=== PATIENT | female | born 1950 | race African-American/Black ===

== ENCOUNTER 2017-05-09 17:42 | Inpatient (IN) | payer MEDICARE ==
--- NOTE | ~2017-05-09 | DS ---
Discharge Summary [facility] [address] [place]. [address] NAME: ESME MANUEL : 48 STATUS : DIS IN PAT#: [id number] AGE: 66 ADM/REG DATE : 05/10/17 MR#: [id number] REPORT SERV DATE: 05/28/17 DICTATED BY: ARLENE OTOOLE DATE: 05/26/17 REPORT STATUS : Draft TRANSCRIBED BY: ARI DATE: 05/26/17 Data Collection from hospitalization DISCHARGE DIAGNOSIS(ES): 1. Acute renal failure. 2. Hyperkalemia. 3. Hyponatremia. 4. Urinary retention. 5. Morbid obesity. 6. Diabetes mellitus. 7. Sleep apnea - untreated. 8. Hypertension. 9. Hypothyroidism. 10.Schizoaffective disorder. 11.Anemia of chronic kidney disease. 12.Osteoarthritis. 13.History of old lacunar CVA. 14.Depression. 15.Hyperlipidemia. 16.Diastolic dysfunction. 17.Venous stasis disease. CONSULTATIONS: Dr. Nick Rene and Dr. Declan Tejeda. PROCEDURES PERFORMED: 1. CT scan of the abdomen and pelvis without contrast, 05/09/2017. 2. CT scan of the left lower extremity without contrast, 05/10/2017. MEDICATIONS: Abilify 10 mg at bedtime, aspirin 81 mg daily, Lipitor 40 mg at bedtime, Wellbutrin SR 150 mg twice a day, Iodosorb gel, apply to the right leg wound topically daily as instructed, Coreg 3.125 mg twice a day, Caltrate plus D 600 mg twice a day, Voltaren 2 g topically twice a day, Colace 100 mg twice a day, Flonase nasal spray two sprays in each nostril daily, Lasix 80 mg daily, Neurontin 100 mg twice a day, [place] 5/325 one tablet three times a day, NovoLog injection insulin as instructed, Synthroid 50 mcg before breakfast, Singulair 10 mg daily, MiraLAX powder one packet twice a day, Senokot two tablets twice a day, Apresoline 75 mg twice a day, Artificial Tears one drop four times a day as needed, dextrose 50 mL IV as needed, Glucophage 250 mg daily, glucose tablets three tablets as needed, vitamin D 50,000 units every 30 days as instructed, Artificial Tears one drop four times a day as needed, and Protonix 40 mg daily as instructed. CONDITION AT DISCHARGE: Stable. DISPOSITION: The patient was discharged to [facility] at [facility] on a regular diet with 1500 mL fluid restriction and activities as instructed. HOSPITAL COURSE: This is a 66-year-old female who was seen on the day prior to this admission after the assisted living facility nurse called to report that the patient had a fall and was complaining of feeling weak. The patient was taken to the [facility] Discharge Summary [address] [address] NAME: ESME MANUEL : 48 STATUS : DIS IN PAT#: [id number] AGE: 66 ADM/REG DATE : 05/10/17 MR#: [id number] REPORT SERV DATE: 05/28/17 DICTATED BY: ARLENE OTOOLE DATE: 05/26/17 REPORT STATUS : Draft TRANSCRIBED BY: ARI DATE: 05/26/17 at that time but was discharged without any medications. She reports that she had fallen onto her rolling walker and thought that she may have stayed on the floor for a prolonged period of time. She denies having hit her head and did not complain of any chest pain, shortness of breath, fever, nausea, vomiting, diarrhea, or dysuria. In the clinic, BUN and creatinine were elevated at 34 and 2.6. Her last BUN and creatinine in 01/2017 was 23 and 1.48. She had been voiding. She was felt to have acute on chronic renal failure. That evening, it was reported that she was not able to void. A bladder scan revealed 700 mL of urine. A Hollis catheter was placed. BUN and creatinine improved to 29 and 1.53 after receiving IV fluids overnight. She was admitted to the hospital at this time for further evaluation and treatment. Upon admission, x-rays of the knees were performed. She does have extensive degenerative joint disease with possible left knee fracture. The patient was seen by Dr. Nick Rene regarding acute kidney injury and hyponatremia. She had received IV fluids overnight. She denies any nonsteroidal antiinflammatory drug use. His impression included acute on chronic kidney disease, possibly prerenal with urinary retention. Creatinine had decreased from 2.58 to 1.53. She has a history of chronic hyponatremia. Her sodium level improved from 126 to 132 with saline. She agreed with normal saline. VESIcare was going to be discontinued. Abilify was continued for her schizoaffective disorder. Sliding scale insulin was being continued with fair blood sugar control. She is a DNR code status with limited additional interventions. A CT scan of the abdomen and pelvis without contrast had been performed. There was no acute abdominal or pelvic pathology. A CT scan of the left knee was obtained. On the , sodium and creatinine levels had improved. She had 1+ edema. VESIcare had been stopped. She was going to be placed on fluid restriction for now. The Hollis catheter was removed. She was voiding. Her T-max was 100. BUN and creatinine had improved and were back to baseline. IV fluids had been stopped. On the , she was seen by Dr. Declan Tejeda. This patient is morbidly obese. She is a long-term resident of an assisted living facility. There was a question of decrease in her short-term memory. She does use a walker and is a limited community walker. She complained of having clicking in moderate pain and weakness in her lower extremities. She was felt to have genu varus osteoarthritis of the knees. She is not a candidate for total knee arthroplasty at this time. She was encouraged to attempt weight loss. It was felt that she would need to undergo more motility and balance training. Her T-max was 99.3. White blood cell count was normal. Sliding scale insulin was continued. She remained on fluid restriction. On 05/13/2017, she had no new complaints. She had fair control of her blood sugars, acute on chronic renal failure had resolved. Discharge planning was performed. On 01/15/2017, she had no acute complaints. Her lungs were clear. She was alert. Discharge instructions were given. Due to her improved and stable condition, she was discharged to [facility] at [facility] with the above-stated instructions. Information collected by: Franchesca Gaines I submit the above information as my discharge summary. TG/MODL Discharge Summary [facility] [address] [place]. [address] NAME: ESME MANUEL : 48 STATUS : DIS IN PAT#: [id number] AGE: 66 ADM/REG DATE : 05/10/17 MR#: [id number] REPORT SERV DATE: 05/28/17 DICTATED BY: ARLENE OTOOLE DATE: 05/26/17 REPORT STATUS : Draft TRANSCRIBED BY: ARI DATE: 05/26/17 Arlene Otoole M.D. / [id number] CC: Kesha Perrin M.D. Neil Spitalny, M.D. [facility]
--- NOTE | ~2017-05-09 | CN ---
Consultation Report [facility] [address] [place]. [address] NAME: ESME MANUEL : 48 STATUS : ADM Jayce PAT#: [id number] AGE: 66 ADM/REG DATE : 05/09/17 MR#: [id number] REPORT SERV DATE: 05/10/17 DICTATED BY: TORSTEN MALDONADO DATE: 05/10/17 REPORT STATUS : Draft TRANSCRIBED BY: MODL DATE: 05/10/17 NEPHROLOGY CONSULTATION DATE OF CONSULTATION: 05/10/2017 INDICATION FOR CONSULTATION: Acute kidney injury, hyponatremia. HISTORY OF PRESENT ILLNESS: Ms. Manuel is a 66-year-old female, who was admitted after note of acute kidney injury with rise of her creatinine to approximately 2.6. She had been found after a fall by her daughter. She apparently lives alone at home and ambulates with a walker. She was unsure of how long she was remaining on the floor before she was found. Initial labs available reflect a creatinine of 2.53, which has fallen to 1.58; a serum sodium of 126, which has risen to 132; and a potassium of 6.0, which has fallen to 4.4. She has been on spironolactone, potassium, Lasix, metformin, Abilify, Wellbutrin. She denies nonsteroidal antiinflammatory drug use. Upon Hollis placement after hospitalization, she initially voided approximately 700 mL. She denies any note of dark-colored urine or gross hematuria. She has no symptoms to suggest underlying collagen vascular disease. PAST MEDICAL HISTORY: CKD stage 3, baseline creatinine questionably 1.5; chronic hyponatremia; schizoaffective disorder; type 2 diabetes mellitus; hypertension; hypothyroidism; anemia of chronic kidney disease, followed by Hematology; osteoarthritis; venous stasis disease of lower extremities with occasional lower extremity ulcer; depression; old lacunar CVA; obstructive sleep apnea; diastolic dysfunction; and hyperlipidemia. SOCIAL HISTORY: The patient lives alone. 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 No use of alcohol, tobacco products, or illicit drugs. She has two adult daughters, who check on her frequently. ALLERGIES: NONE KNOWN. HOME MEDICATIONS: Acetaminophen, Abilify, aspirin, Lipitor, Wellbutrin, Caltrate, Coreg, Voltaren gel topical, Colace, vitamin D3, Flonase nasal spray, Lasix, Neurontin, Apresoline, levothyroxine, metformin, Singulair, omeprazole, MiraLax, potassium chloride, Senokot, VESIcare, Aldactone, tramadol, RectiCare cream. FAMILY HISTORY: Positive for hypertension. Unsure about cardiac disease. No history of end stage renal disease or cancer. REVIEW OF SYSTEMS: HEENT: No change in visual acuity. No epistaxis. No otic infection. No pharyngitis. PULMONARY: Denies shortness of breath, cough, or hemoptysis. CARDIAC: Has some intermittent chest pain and lower extremity edema. GI: No nausea, vomiting, or diarrhea. Does have intermittent constipation. Consultation Report [place] [id number] [place]. [address] NAME: ESME MANUEL : 48 STATUS : ADM Jayce PAT#: [id number] AGE: 66 ADM/REG DATE : 05/09/17 MR#: [id number] REPORT SERV DATE: 05/10/17 DICTATED BY: TORSTEN MALDONADO DATE: 05/10/17 REPORT STATUS : Draft TRANSCRIBED BY: ARI DATE: 05/10/17 : History of urinary frequency. No gross hematuria, dysuria, or pyuria. MUSCULOSKELETAL: Pain in back and knees. INTEGUMENT: No rash. No itching. Does have some occasional lower extremity ulcers from venous stasis disease. NEUROLOGIC: No lateralizing weakness or seizure activity. The remainder of 12-point review of systems is negative. PHYSICAL EXAMINATION: VITAL SIGNS: Temp 96.9, blood pressure 131/60, respiratory rate 17, pulse 82. GENERAL: Pleasant female, alert and cooperative. HEENT: Eyes, no scleral icterus. Pupils equal and reactive to light. Extraocular movement intact. Nares patent, no discharge. Throat, no injection. Mucous membranes moist. NECK: No thyromegaly, masses, or bruits. CHEST/LUNGS: Few late crackles posteriorly at bases. No dullness. No wheezing. CARDIAC: Regular rate and rhythm. No murmur, gallop, or rub. ABDOMEN: Supple. Normoactive bowel sounds. Nontender. No hepatosplenomegaly. No bruits. BREASTS: Not performed. PELVIC: Not performed. RECTAL: Not performed. EXTREMITIES: 1+ edema. No calf tenderness. DERMIS: No rash. No skin lesions. NEUROLOGIC: Cranial nerves intact. No lateralizing weakness. MUSCULOSKELETAL: No deformity. No joint effusions. IMPRESSION: 1. Acute on chronic kidney disease, possibly prerenal with urinary retention, creatinine falling from 2.58 to 1.53. 2. Hyponatremia with history of chronic hyponatremia, sodium improved from 126 to 132 with saline. 3. Schizoaffective disorder. 4. Type 2 diabetes mellitus. 5. Hypertension. 6. Hypothyroidism. 7. Anemia of chronic kidney disease. 8. Lower extremity venous stasis disease. PLAN: 1. Concur with normal saline. 2. We will discontinue VESIcare. 3. Lab. CG/MODL Consultation Report [place] [id number] [place]. [address] NAME: ESME MANUEL : 48 STATUS : ADM Jayce PAT#: [id number] AGE: 66 ADM/REG DATE : 05/09/17 MR#: [id number] REPORT SERV DATE: 05/10/17 DICTATED BY: TORSTEN MALDONADO DATE: 05/10/17 REPORT STATUS : Draft TRANSCRIBED BY: MODL DATE: 05/10/17 Torsten Maldonado M.D. / [id number] CC: Kesha Coello M.D.
--- NOTE | ~2017-05-09 | HP ---
History And Physical [place] [id number] [facility] [place]. [address] NAME: ESME MANUEL : [birth year] STATUS : ADM IN [facility]#: [id number] AGE: 66 ADM/REG DATE : 05/10/17 MR#: [id number] REPORT SERV DATE: 05/15/17 DICTATED BY: ARLENE OTOOLE DATE: 05/14/17 REPORT STATUS : Draft TRANSCRIBED BY: MODL DATE: 05/14/17 DATE OF ADMISSION: 05/10/2017 CHIEF COMPLAINT: Elevated BUN and creatinine. HISTORY OF PRESENT ILLNESS: The patient was seen in the clinic on 05/09/2017 after the assisted living facility nurse had called to report that the patient had had a fall yesterday and was complaining of feeling weak. The patient was taken to the [facility] at the time, but was discharged without any medications. She reports that she had fallen onto her rolling walker and thinks that she may have stayed on the floor for a prolonged period of time. She denies having hit her head and does not complain of any chest pain, shortness of breath, fever, nausea, vomiting, diarrhea, or dysuria. In the clinic, labs were done, and BUN and creatinine were found to be elevated at 34 and 2.6. Her last BUN and creatinine on 02/08/2017 was 23/1.48. She has joya voiding. She was subsequently admitted to the hospital for further evaluation of acute on chronic renal failure. The nurse also called last night and had reported that the patient was not able to void, and the BladderScan had revealed 700 mL of urine. Subsequently, a Hollis catheter was put in. Her BUN and creatinine are improved today down to 29 and 1.53 after receiving IV fluids overnight. An x-ray of the knees was also performed in view of knee pain and bilateral knees showed extensive degenerative joint disease with possible left knee fracture, but the radiologist recommending a CT scan. The patient has been seen by Ren[facility], and they have recommended continuing IV fluids as the renal function is improving at this time. They also recommended stopping her VESIcare. REVIEW OF SYSTEMS: No complaints of changes in vision or hearing loss. No complaints of shortness of breath, chest pain, nausea, or vomiting. No complaints of abdominal pain or burning micturition. FAMILY HISTORY: Currently noncontributory. SOCIAL HISTORY: She lives currently at an assisted living facility and has been having occasional falls as per her [id number], who is currently in the hospital room. ALLERGIES: NORVASC, MARTÍN INHIBITOR, LACTOSE INTOLERANCE. MEDICATIONS: Abilify 10 mg at bedtime, aspirin 81 mg daily, atorvastatin 40 mg at bedtime, CalCarb, Colace, Coreg 3.125 mg twice a day, furosemide 40 mg two tablets once daily, gabapentin 100 mg one tablet twice a day, Glucophage 500 mg [id number] daily, hydralazine 50 mg [id number]-[id number]-half tablets twice a day, potassium chloride, levothyroxine 50 mcg one tablet daily, Prilosec 20 mg one capsule twice a day, RectiCare cream p.r.n., senna two tablets twice a day, Singulair 10 mg one tablet daily, spironolactone 50 mg twice a day, tramadol 50 mg one tablet three times daily, Tylenol 500 mg two tablets three times daily, VESIcare 10 mg at bedtime, vitamin D3 50,000 units one capsule monthly, Voltaren Gel 2 g twice daily, Wellbutrin 150 mg one tablet twice a day. History And Physical [address] [address] NAME: ESME MANUEL : [birth year] STATUS : ADM IN [facility]#: [id number] AGE: 66 ADM/REG DATE : 05/10/17 MR#: [id number] REPORT SERV DATE: 05/15/17 DICTATED BY: ARLENE OTOOLE DATE: 05/14/17 REPORT STATUS : Draft TRANSCRIBED BY: ARI DATE: 05/14/17 PHYSICAL EXAMINATION: VITAL SIGNS: Temperature 96.9, pulse 80, respirations 17, blood pressure 158/54, oxygen saturations 95% on room air. GENERAL: Middle-aged lady, morbidly obese, lying in bed, in no acute distress. HEENT: Pupils are reactive. No conjunctival injection. No scleral icterus noted. NECK: Obese. CHEST: Clear to auscultation bilaterally. CARDIOVASCULAR: Regular rate and rhythm. No murmurs heard. ABDOMEN: Soft, nontender, nondistended. Obesity present. Bowel sounds are present. EXTREMITIES: Reveal 1+ edema bilaterally. Right lower extremity wound was present with a full-thickness wound. LABORATORY DATA: Sodium 132, potassium 4.4, chloride 102, BUN was 36 and creatinine 2.38 yesterday in the emergency room and it was down to 29 and 1.53 today, glucose 123, calcium 8.4. White count 12.3, hemoglobin 8.9, hematocrit 28.2, platelets 277. CPK was 6856. CT scan of the abdomen and pelvis revealed a 1 mm nonobstructing calculi in the mid lower pole, right kidney, moderate to severe degenerative joint disease L4-L5. Chest x-ray revealed normal heart and lungs. X-ray of bilateral knees revealed advanced degenerative joint disease in bilateral knees with mild depression of the medial tibial plateau with lucencies and possible bone fragment in the left knee with a small suprapatellar joint effusion. ASSESSMENT AND PLAN: 1. Acute on chronic renal failure. This has improved with IV fluids. Unclear cause. CPK not high enough to be responsible for rhabdo and renal damage as per the inspector and hand packager. 2. Hyponatremia likely secondary to current medications. It is somewhat improved. Will fluid restrict. 3. Schizoaffective disorder. Continue current medications Abilify. 4. Type 2 diabetes mellitus. She is currently on sliding scale insulin with fair blood- sugar control. 5. Hypothyroidism, on Synthroid. We will continue the same. 6. Anemia secondary to chronic kidney disease. This is present at baseline. 7. Hypertension. She has fair blood pressure control at this time. 8. Code status is DNR, limited additional interventions. ANGEL LUIS/ARI Arlene Otoole M.D. / [id number] CC: Arlene Otoole M.D.
[2017-05-09 16:17] LABS: BUN (BLOOD UREA NITROGEN) 36 MG/DL (6-23); CALCIUM, SERUM 9.3 MG/DL (8.5-10.4); CHLORIDE, SERUM 95 MMOL/L (96-112); CO2 (CARBON DIOXIDE) 23 MMOL/L (24-34); CREATININE 2.53 MG/DL (0.55-1.02); GFR AFRICAN AMERICAN 22 ML/MIN (>=60); GFR NON AFRICAN AMERICAN 19 ML/MIN (>=60); GLUCOSE, SERUM 64 MG/DL (60-99)
[2017-05-09 16:21] LABS: SODIUM, SERUM 127 MMOL/L (135-148)
[~2017-05-09 17:42] MED LIST: ABILIFY5 PO; ACET500CAP PO; APRES50 PO; ASAB PO; ATEN50 PO; CALTRAT600 PO; COREG3 PO; DEPAKOT500 PO; DEPAKOTEER PO; DSS PO; EFFEXOR XR150 MG PO; FORTAMET500 MG PO; GLUCPH PO; IRON325 MG PO; KLOR-CON M2020 MEQ PO; L20 PO; L40 PO; LEVOTHYROXIN25 MCG PO; LORTAB 5 PO; LOTREL1 CA2 PO; MULTIPLE VIT PO; MULTIVITAMI1 PO; NORV10 PO; OS500+D PO; PRAVACHOL80 MG PO; PRILO PO; SPIRO25 PO; SYN.025B PO; ZOCOR20 PO
[2017-05-09 18:04] LABS: BASOPHILS 0.1 %; BASOPHILS ABSOLUTE 0.01 10/3/uL (0.0-0.16); EOSINOPHILS 0.9 %; EOSINOPHILS ABSOLUTE 0.11 10/3/uL (0.0-0.53); HEMATOCRIT 28.2 % (36.0-48.0); HEMOGLOBIN 8.9 g/dL (12.0-16.0); IMMATURE GRANULOCYTES 0.6 %; IMMATURE GRANULOCYTES ABSOLUTE 0.07 10/3/uL (0.0-0.11); LYMPHOCYTES ABSOLUTE 1.36 10/3/uL (0.67-4.30); MEAN CORPUS HGB CONC 31.6 g/dL (32.0-36.0); MEAN CORPUSCULAR HEMOGLOB 25.4 pg (26.0-34.0); MEAN CORPUSCULAR VOLUME 80.6 fL (80-100); MEAN PLATELET VOLUME 8.8 fL (9.2-13.0); MONOCYTES 10.2 %; MONOCYTES ABSOLUTE 1.25 10/3/uL (0.21-1.20); NEUTROPHILS 77.2 %; NEUTROPHILS ABSOLUTE 9.51 10/3/uL (2.02-8.40); PLATELET COUNT 277 10/3/uL (150-400); RBC DISTRIBUTION WIDTH 15.8 % (12.0-16.0)
[2017-05-09 18:05] LABS: ER CBC TAT 0 Hrs 07 Mins; MANUAL DIFF NO %; WHITE BLOOD CELLS 12.3 10/3/uL (4.5-10.5)
[2017-05-09 18:12] LABS: ASCORBIC ACID (UR NOT ORDER) NEG (NEG); BILIRUBIN, URINE NEGATIVE (NEG); ER URINALYSIS TAT 0 Hrs 13 Mins; KETONE, URINE NEGATIVE (NEG); LEUKOCYTE ESTERASE(NOT OR NEG (NEG); NITRITE (URINE) NEG (NEG); WBC (NOT ORDERED) (RFLEX) < 1 (0-5)
[2017-05-09 18:30] LABS: BUN (BLOOD UREA NITROGEN) 36 MG/DL (6-23); CALCIUM, SERUM 9.5 MG/DL (8.5-10.4); CHLORIDE, SERUM 94 MMOL/L (96-112); CO2 (CARBON DIOXIDE) 24 MMOL/L (24-34); CREATININE 2.38 MG/DL (0.55-1.02); GFR AFRICAN AMERICAN 24 ML/MIN (>=60); GFR NON AFRICAN AMERICAN 20 ML/MIN (>=60); SODIUM, SERUM 126 MMOL/L (135-148)
[2017-05-09 18:31] LABS: GLUCOSE, SERUM 90 MG/DL (60-99); POTASSIUM, SERUM 4.7 MMOL/L (3.5-5.3)
[2017-05-09] MEDS ORDERED: DSS PO (22:36)
[2017-05-09] MEDS ORDERED: LEVOTHYROXIN50 MCG PO (22:36)
[2017-05-09] MEDS ORDERED: HALF81 PO (22:36)
[2017-05-09] MEDS ORDERED: KLOR-CON M2020 MEQ PO (22:37)
[2017-05-09] MEDS ORDERED: L80 PO (22:37)
[2017-05-09] MEDS ORDERED: GLUCPH PO (22:37)
[2017-05-09] MEDS ORDERED: WELLSR150 PO (22:37)
[2017-05-09] MEDS ORDERED: SPIRO50 PO (22:37)
[2017-05-09] MEDS ORDERED: ABILIFY10 PO (22:38)
[2017-05-09] MEDS ORDERED: CALTRA600D PO (22:38)
[2017-05-09] MEDS ORDERED: ACET500CAP PO (22:38)
[2017-05-09] MEDS ORDERED: SENTAB PO (22:39)
[2017-05-09] MEDS ORDERED: APRES25 PO (22:39)
[2017-05-09] MEDS ORDERED: VOLTAREN1 % TOP (22:40)
[2017-05-09] MEDS ORDERED: VESICARE10 MG PO (22:42)
[2017-05-09] MEDS ORDERED: SINGULAIR1 PO (22:42)
[2017-05-09] MEDS ORDERED: RECTICARE (22:42)
[2017-05-09] MEDS ORDERED: NEUR100 PO (22:43)
[2017-05-09] MEDS ORDERED: COREG3 PO (22:43)
[2017-05-09] MEDS ORDERED: PRILO PO (22:43)
[2017-05-09] MEDS ORDERED: LIPITOR40 PO (22:43)
[2017-05-09] MEDS ORDERED: MIRALAX POWDER1 PKT PO (22:45)
[2017-05-09] MEDS ORDERED: FLONASE NAS (22:45)
[2017-05-09] MEDS ORDERED: VITD PO (22:46)
[2017-05-09] MEDS ORDERED: TEARS PURE OPH (22:46)
[2017-05-09] MEDS ORDERED: ULTRAM50 PO (22:47)
[2017-05-10 03:34] LABS: CHLORIDE, SERUM 102 MMOL/L (96-112); CO2 (CARBON DIOXIDE) 22 MMOL/L (24-34); POTASSIUM, SERUM 4.4 MMOL/L (3.5-5.3); SODIUM, SERUM 132 MMOL/L (135-148)
[2017-05-10 03:36] LABS: BUN (BLOOD UREA NITROGEN) 29 MG/DL (6-23); CALCIUM, SERUM 8.4 MG/DL (8.5-10.4); CREATININE 1.53 MG/DL (0.55-1.02); GFR AFRICAN AMERICAN 40 ML/MIN (>=60); GFR NON AFRICAN AMERICAN 35 ML/MIN (>=60); GLUCOSE, SERUM 123 MG/DL (60-99)
[2017-05-10 11:53] LABS: FREE T4 1.23 NG/DL (0.76-1.46)
[2017-05-10 11:54] LABS: CPK 6856 U/L (0-200)
[2017-05-11 04:47] LABS: BASOPHILS 0.1 %; BASOPHILS ABSOLUTE 0.01 10/3/uL (0.0-0.16); EOSINOPHILS 1.6 %; EOSINOPHILS ABSOLUTE 0.12 10/3/uL (0.0-0.53); HEMOGLOBIN 7.5 g/dL (12.0-16.0); IMMATURE GRANULOCYTES 0.5 %; IMMATURE GRANULOCYTES ABSOLUTE 0.04 10/3/uL (0.0-0.11); LYMPHOCYTES 15.2 %; LYMPHOCYTES ABSOLUTE 1.13 10/3/uL (0.67-4.30); MEAN CORPUS HGB CONC 31.9 g/dL (32.0-36.0); MEAN CORPUSCULAR HEMOGLOB 25.5 pg (26.0-34.0); MEAN CORPUSCULAR VOLUME 79.9 fL (80-100); MEAN PLATELET VOLUME 8.8 fL (9.2-13.0); MONOCYTES ABSOLUTE 1.11 10/3/uL (0.21-1.20); NEUTROPHILS 67.6 %; PLATELET COUNT 227 10/3/uL (150-400); RBC DISTRIBUTION WIDTH 15.6 % (12.0-16.0); RED CELL COUNT 2.94 10/6/uL (4.0-5.6); WHITE BLOOD CELLS 7.4 10/3/uL (4.5-10.5)
[2017-05-11 04:49] LABS: HEMATOCRIT 23.5 % (36.0-48.0); MANUAL DIFF NO %
[2017-05-11 05:02] LABS: CALCIUM, SERUM 9.2 MG/DL (8.5-10.4); CHLORIDE, SERUM 100 MMOL/L (96-112); CO2 (CARBON DIOXIDE) 24 MMOL/L (24-34); GLUCOSE, SERUM 99 MG/DL (60-99); POTASSIUM, SERUM 4.6 MMOL/L (3.5-5.3); SODIUM, SERUM 131 MMOL/L (135-148)
[2017-05-11 05:03] LABS: ALBUMIN 2.6 G/DL (3.5-5.0); BUN (BLOOD UREA NITROGEN) 16 MG/DL (6-23); CREATININE 1.01 MG/DL (0.55-1.02); GFR AFRICAN AMERICAN 67 ML/MIN (>=60); GFR NON AFRICAN AMERICAN 58 ML/MIN (>=60)
[2017-05-11 05:07] LABS: T PROTEIN (ELECT)(NOT OR 6.3 G/DL (6.0-8.5)
[2017-05-11 09:38] LABS: CPK 3514 U/L (0-200)
[2017-05-11 21:27] LABS: ASCORBIC ACID (UR NOT ORDER) NEG (NEG); BILIRUBIN, URINE NEGATIVE (NEG); KETONE, URINE NEGATIVE (NEG); LEUKOCYTE ESTERASE(NOT OR NEG (NEG); WBC (NOT ORDERED) (RFLEX) 2 (0-5)
[2017-05-12 04:35] LABS: BASOPHILS 0.1 %; BASOPHILS ABSOLUTE 0.01 10/3/uL (0.0-0.16); EOSINOPHILS 1.8 %; EOSINOPHILS ABSOLUTE 0.15 10/3/uL (0.0-0.53); HEMATOCRIT 25.6 % (36.0-48.0); IMMATURE GRANULOCYTES 0.7 %; IMMATURE GRANULOCYTES ABSOLUTE 0.06 10/3/uL (0.0-0.11); LYMPHOCYTES 18.6 %; LYMPHOCYTES ABSOLUTE 1.53 10/3/uL (0.67-4.30); MEAN CORPUS HGB CONC 31.3 g/dL (32.0-36.0); MEAN PLATELET VOLUME 8.8 fL (9.2-13.0); MONOCYTES 12.1 %; MONOCYTES ABSOLUTE 0.99 10/3/uL (0.21-1.20); NEUTROPHILS 66.7 %; NEUTROPHILS ABSOLUTE 5.47 10/3/uL (2.02-8.40); PLATELET COUNT 253 10/3/uL (150-400); RBC DISTRIBUTION WIDTH 15.5 % (12.0-16.0); WHITE BLOOD CELLS 8.2 10/3/uL (4.5-10.5)
[2017-05-12 04:37] LABS: MANUAL DIFF NO %
[2017-05-12 04:38] LABS: ALBUMIN 2.6 G/DL (3.5-5.0); BUN (BLOOD UREA NITROGEN) 13 MG/DL (6-23); CALCIUM, SERUM 9.2 MG/DL (8.5-10.4); CHLORIDE, SERUM 101 MMOL/L (96-112); CO2 (CARBON DIOXIDE) 24 MMOL/L (24-34); CREATININE 1.06 MG/DL (0.55-1.02); GFR AFRICAN AMERICAN 63 ML/MIN (>=60); GFR NON AFRICAN AMERICAN 54 ML/MIN (>=60); GLUCOSE, SERUM 104 MG/DL (60-99); PHOSPHORUS, SERUM 3.3 MG/DL (2.5-4.5); POTASSIUM, SERUM 4.6 MMOL/L (3.5-5.3); SODIUM, SERUM 132 MMOL/L (135-148)
[2017-05-12 10:58] LABS: A/G 0.86 RATIO (0.9-2.10); ALB RELATIVE % 46.3 % (60.0-89.0); ALBUMIN (ELECTRO) 2.92 GM/DL (3.2-5.5); ALPHA 1 (ELECTRO) 0.31 GM/DL (0.1-0.4); ALPHA 1 RELAT % (NOT ORD) 4.9 % (1.0-4.0); ALPHA 2 (ELECTRO) 1.05 GM/DL (0.5-1.10); ALPHA 2 RELAT % 16.6 % (4.5-26.0); BETA GLOBULIN (SPE) 0.92 GM/DL (0.60-1.30); BETA RELATIVE % 14.6 % (9.0-22.0); GAMMA GLOBULIN (SPE) 1.11 G/DL (0.70-1.60); GAMMA RELAT % 17.6 % (6.0-22.0)
== END 2017-05-15 18:05 | DRG 683 ==
LOC: ER 17:42 → CDU1 22:27 → CDU2 22:50 → 4SO 05-12 23:56
PROVIDERS: Emergency Medicine; Internal Medicine Geriatric Medicine; Internal Medicine Nephrology
DX: N17.9 Acute kidney failure, unspecified (principal); E87.1 Hypo-osmolality and hyponatremia; E11.22 Type 2 diabetes mellitus with diabetic chronic kidney disease; Z68.43 Body mass index [BMI] 50.0-59.9, adult; L97.819 Non-pressure chronic ulcer of other part of right lower leg with unspecified severity; I12.9 Hypertensive chronic kidney disease with stage 1 through stage 4 chronic kidney disease, or unspecified chronic kidney disease; N18.3 Chronic kidney disease, stage 3 (moderate); Z66 Do not resuscitate; E03.9 Hypothyroidism, unspecified; F20.9 Schizophrenia, unspecified; G47.33 Obstructive sleep apnea (adult) (pediatric); E78.5 Hyperlipidemia, unspecified; I87.8 Other specified disorders of veins; D63.1 Anemia in chronic kidney disease; W18.30XA Fall on same level, unspecified, initial encounter; Z79.82 Long term (current) use of aspirin; Z79.84 Long term (current) use of oral hypoglycemic drugs; Z79.899 Other long term (current) drug therapy; Z86.73 Personal history of transient ischemic attack (TIA), and cerebral infarction without residual deficits; Z88.8 Allergy status to other drugs, medicaments and biological substances; E66.01 Morbid (severe) obesity due to excess calories; R33.9 Retention of urine, unspecified; R53.81 Other malaise; M21.169 Varus deformity, not elsewhere classified, unspecified knee; M17.0 Bilateral primary osteoarthritis of knee
CPT/HCPCS: 71010; 73560-50; 73700-LT; 74176; 80048; 80069; 81001; 82330; 82533; 82550; 82803; 82947; 82962; 83735; 83930; 83935; 84132; 84155; 84165; 84295; 84439; 84443; 85014; 85025; 93005; 96372; 97162-GP; 99283; 99285; A9270-GY; J1885